=== PATIENT | male | born 1990 | race Caucasian/White ===

== ENCOUNTER 2016-08-23 12:07 | Inpatient (IN) | payer OTHER ==
[~2016-08-23] VITALS: Ht 180.3 cm; Wt 62.9 kg
[2016-08-23 12:27] LABS: POINT-OF-CARE METER ID UU14100415
[2016-08-23 12:51] LABS: EOSINOPHIL (%) 0 % (0-5); HEMATOCRIT 42.1 % (38.0-50.0); IMMATURE GRANULOCYTE (%) 0.8 % (0.0-0.7); IMMATURE GRANULOCYTE COUNT 0.1 K/uL; INSTRUMENT ABS NEUTROPHIL CT 10.2 K/uL; LYMPHOCYTE COUNT 1.3 K/uL (1.0-2.8); MCH 30.6 PG (29.0-34.0); MCHC 34.9 G/DL (30.0-36.0); MCV 87.7 FL (86-99); MEAN PLAT.VOLUME 10.5 uM^3 (9.0-12.4); MONOCYTE (%) 10.5 % (3-12); MONOCYTE COUNT 1.4 K/uL (0-0.8); NEUTROPHIL (%) 78.6 % (45-76); NEUTROPHIL COUNT 10.2 K/uL (1.8-6.4); PLATELET COUNT 204 K/uL (156-360); RBC DIS.WIDTH-CV 11.4 % (11.8-14.6); RBC DIS.WIDTH-SD 37.1 % (39-53)
[2016-08-23 12:58] LABS: CARBON DIOXIDE (BICARBONATE) 20.4 MEQ/L (20-31)
[2016-08-23 13:03] LABS: CHLORIDE 101 mEq/L (99-109); POTASSIUM 4.6 mEq/L (3.7-5.4); SODIUM 134 mEq/L (136-147)
[2016-08-23 13:06] LABS: GLUCOSE 273 mg/dL (70-99)
[2016-08-23 13:07] LABS: ANION GAP 15 MEQ/L (2-14)
[2016-08-23 13:08] LABS: TOTAL BILIRUBIN 0.7 mg/dL (0.0-1.0)
[2016-08-23 13:09] LABS: ALKALINE PHOSPHATASE 74 IU/L (3-129); GFR ESTIMATE (CALCULATED) > 59 mL/min/
[2016-08-23 13:10] LABS: UREA NITROGEN (BUN) 18 mg/dL (9-23)
[2016-08-23 13:38] LABS: ADD MIUA? YES; BILIRUBIN NEGATIVE; BLOOD NEGATIVE; COLOR YELLOW ((YELLOW)); GLUCOSE (STRIP) >=500; KETONES 80; LEUKOCYTES NEGATIVE; NITRITE NEGATIVE; PROTEIN (STRIP) 100; UROBILINOGEN 0.2 MG/DL (0.2-1.0)
[2016-08-23 13:44] LABS: BACTERIA NONE SEEN /HPF; EPITHELIAL CELLS NONE SEEN /HPF; HYALINE CASTS 0-5 /LPF; MUCUS NONE SEEN /LPF; RED BLOOD CELLS 0-5 /HPF (0-5); UCUL ADDED? NO; WHITE BLOOD CELLS 0-5 /HPF (0-5)
[2016-08-23 14:02] LABS: LIPASE 7 U/L (1.0-51.0)
[2016-08-23 15:43] LABS: CHLORIDE 106 mEq/L (99-109); POTASSIUM 4.1 mEq/L (3.7-5.4); SODIUM 134 mEq/L (136-147)
[2016-08-23 15:45] LABS: GLUCOSE 230 mg/dL (70-99)
[2016-08-23 15:46] LABS: ANION GAP 15 MEQ/L (2-14)
[2016-08-23 15:48] LABS: GFR ESTIMATE (CALCULATED) > 59 mL/min/
[2016-08-23 15:49] LABS: UREA NITROGEN (BUN) 16 mg/dL (9-23)
[2016-08-23] MEDS ORDERED: HUMALOG100 UNIT/2 SC (16:44)
[2016-08-23] MEDS ORDERED: LEVEMIR100 UNIT/2 SC (16:44)
[2016-08-23] MEDS ORDERED: TRAMADOL HCL50 MG PO (16:45)
[2016-08-23 18:19] VITALS: BP 143/94
[2016-08-23 18:52] VITALS: BP 132/82
[2016-08-23 20:25] LABS: ANION GAP 15 MEQ/L (2-14); CHLORIDE 103 MEQ/L (99-109); POTASSIUM 3.8 MEQ/L (3.7-5.4); SAMPLE HEMOLYSIS CHECK 0; SAMPLE ICTERIC CHECK 0; SAMPLE LIPEMIA CHECK 0; SODIUM 135 MEQ/L (136-147)
[2016-08-23 20:31] LABS: GFR ESTIMATE (CALCULATED) > 59 mL/min/; GLUCOSE 193 mg/dL (70-99); UREA NITROGEN (BUN) 14 mg/dL (9-23)
[2016-08-23 22:06] LABS: POINT-OF-CARE METER ID UU13113717
[2016-08-24 01:24] LABS: POINT-OF-CARE METER ID UU13113717
[2016-08-24 02:12] VITALS: BP 129/69
[2016-08-24 05:18] LABS: POINT-OF-CARE METER ID UU13113717
[2016-08-24 05:58] LABS: MCH 31.6 PG (29.0-34.0); MCHC 35.5 G/DL (30.0-36.0); MCV 88.9 FL (86-99); MEAN PLAT.VOLUME 10.9 uM^3 (9.0-12.4); PLATELET COUNT 184 K/uL (156-360); RBC DIS.WIDTH-CV 11.6 % (11.8-14.6); RBC DIS.WIDTH-SD 37.1 % (39-53); WHITE BLOOD COUNT 15.3 K/uL (4.1-10.2)
[2016-08-24 06:22] LABS: ANION GAP 21 MEQ/L (2-14); CHLORIDE 99 MEQ/L (99-109); GFR ESTIMATE (CALCULATED) > 59 mL/min/; GLUCOSE 240 mg/dL (70-99); POTASSIUM 3.8 MEQ/L (3.7-5.4); SAMPLE HEMOLYSIS CHECK 0; SAMPLE ICTERIC CHECK 0; SAMPLE LIPEMIA CHECK 0; SODIUM 136 MEQ/L (136-147); UREA NITROGEN (BUN) 12 mg/dL (9-23)
[2016-08-24 07:18] VITALS: BP 121/74
[2016-08-24 07:45] LABS: POINT-OF-CARE METER ID UU13113717
[2016-08-24 10:50] LABS: ANION GAP 20 MEQ/L (2-14); CHLORIDE 98 MEQ/L (99-109); GFR ESTIMATE (CALCULATED) > 59 mL/min/; GLUCOSE 247 mg/dL (70-99); MAGNESIUM 2.1 mg/dl (1.3-2.7); POTASSIUM 3.6 MEQ/L (3.7-5.4); SAMPLE HEMOLYSIS CHECK 0; SAMPLE ICTERIC CHECK 0; SAMPLE LIPEMIA CHECK 0; SODIUM 133 MEQ/L (136-147); UREA NITROGEN (BUN) 12 mg/dL (9-23)
[2016-08-24 13:50] LABS: ANION GAP 16 MEQ/L (2-14); CHLORIDE 101 MEQ/L (99-109); GFR ESTIMATE (CALCULATED) > 59 mL/min/; GLUCOSE 186 mg/dL (70-99); POTASSIUM 3.6 MEQ/L (3.7-5.4); SAMPLE HEMOLYSIS CHECK 0; SAMPLE ICTERIC CHECK 0; SAMPLE LIPEMIA CHECK 0; SODIUM 133 MEQ/L (136-147); UREA NITROGEN (BUN) 11 mg/dL (9-23)
[2016-08-24 15:10] VITALS: BP 142/72
[2016-08-24 15:11] LABS: ANION GAP 12 MEQ/L (2-14); CHLORIDE 102 MEQ/L (99-109); GFR ESTIMATE (CALCULATED) > 59 mL/min/; GLUCOSE 178 mg/dL (70-99); POTASSIUM 3.8 MEQ/L (3.7-5.4); SAMPLE HEMOLYSIS CHECK 0; SAMPLE ICTERIC CHECK 0; SAMPLE LIPEMIA CHECK 0; SODIUM 133 MEQ/L (136-147); UREA NITROGEN (BUN) 10 mg/dL (9-23)
[2016-08-24 16:13] LABS: Estimated Average Glucose 235 mg/dL (70-123)
[2016-08-24 17:18] LABS: ANION GAP 12 MEQ/L (2-14); CHLORIDE 102 MEQ/L (99-109); GFR ESTIMATE (CALCULATED) > 59 mL/min/; GLUCOSE 152 mg/dL (70-99); POTASSIUM 3.7 MEQ/L (3.7-5.4); SAMPLE HEMOLYSIS CHECK 0; SAMPLE ICTERIC CHECK 0; SAMPLE LIPEMIA CHECK 0; SODIUM 133 MEQ/L (136-147); UREA NITROGEN (BUN) 10 mg/dL (9-23)
[2016-08-24 20:18] LABS: AMPHETAMINES QUANT VALUE 0 NG/ML; BARBITUATES QUANT VALUE 0 NG/ML; BENZODIAZEPINES QUANT VALUE 0 NG/ML; BENZODIAZEPINES, URINE SCREEN Negative (200 ng/mL); OPIATES QUANTITATIVE VALUE 0 NG/ML; PHENCYCLIDINE QUANT VALUE 0 NG/ML
[2016-08-24 20:30] VITALS: BP 132/80
[2016-08-24 21:17] LABS: ANION GAP 13 MEQ/L (2-14); CHLORIDE 102 MEQ/L (99-109); GFR ESTIMATE (CALCULATED) > 59 mL/min/; GLUCOSE 134 mg/dL (70-99); POTASSIUM 3.7 MEQ/L (3.7-5.4); SAMPLE HEMOLYSIS CHECK 0; SAMPLE ICTERIC CHECK 0; SAMPLE LIPEMIA CHECK 0; SODIUM 134 MEQ/L (136-147); UREA NITROGEN (BUN) 9 mg/dL (9-23)
[2016-08-25 00:40] VITALS: BP 122/67
[2016-08-25 07:18] VITALS: BP 126/84
[2016-08-25 08:27] LABS: EOSINOPHIL COUNT 0.1 K/uL (0-0.3); HEMATOCRIT 36.1 % (38.0-50.0); IMMATURE GRANULOCYTE (%) 0.6 % (0.0-0.7); IMMATURE GRANULOCYTE COUNT 0.1 K/uL; INSTRUMENT ABS NEUTROPHIL CT 4.9 K/uL; LYMPHOCYTE COUNT 1.7 K/uL (1.0-2.8); MCH 31.8 PG (29.0-34.0); MCHC 36.6 G/DL (30.0-36.0); MEAN PLAT.VOLUME 10.8 uM^3 (9.0-12.4); MONOCYTE (%) 12.7 % (3-12); NEUTROPHIL (%) 63.2 % (45-76); NEUTROPHIL COUNT 4.9 K/uL (1.8-6.4); PLATELET COUNT 160 K/uL (156-360); RBC DIS.WIDTH-CV 11.4 % (11.8-14.6); RBC DIS.WIDTH-SD 36.4 % (39-53); RED BLOOD COUNT 4.15 M/uL (4.00-5.50); WHITE BLOOD COUNT 7.8 K/uL (4.1-10.2)
[2016-08-25 09:00] LABS: ANION GAP 8 MEQ/L (2-14); CHLORIDE 99 MEQ/L (99-109); GFR ESTIMATE (CALCULATED) > 59 mL/min/; GLUCOSE 144 mg/dL (70-99); POTASSIUM 3.3 MEQ/L (3.7-5.4); SAMPLE HEMOLYSIS CHECK 0; SAMPLE ICTERIC CHECK 0; SAMPLE LIPEMIA CHECK 0; SODIUM 135 MEQ/L (136-147); UREA NITROGEN (BUN) 8 mg/dL (9-23)
[2016-08-25 09:04] LABS: HEMOGLOBIN A1c (GLYCOHEMOGLOB) 9.8 % HGB (Below 5.7)
[2016-08-25 10:04] LABS: POINT-OF-CARE METER ID UU13113717
[2016-08-25 14:00] LABS: POINT-OF-CARE METER ID UU13113717
[2016-08-25 15:04] VITALS: BP 120/66
[2016-08-25 18:01] LABS: POINT-OF-CARE METER ID UU14174225
[2016-08-25 23:26] VITALS: BP 144/76
[2016-08-26 02:40] LABS: POINT-OF-CARE METER ID UU14174225
[2016-08-26 06:07] LABS: POINT-OF-CARE METER ID UU14174225
[2016-08-26 07:18] LABS: ANION GAP 16 MEQ/L (2-14); CHLORIDE 100 MEQ/L (99-109); GFR ESTIMATE (CALCULATED) > 59 mL/min/; GLUCOSE 216 mg/dL (70-99); SAMPLE HEMOLYSIS CHECK 0; SAMPLE ICTERIC CHECK 0; SAMPLE LIPEMIA CHECK 0; SODIUM 136 MEQ/L (136-147); UREA NITROGEN (BUN) 10 mg/dL (9-23)
[2016-08-26 07:19] LABS: POTASSIUM 4.1 MEQ/L (3.7-5.4)
[2016-08-26 08:42] VITALS: BP 132/88
[2016-08-26 10:57] LABS: POINT-OF-CARE METER ID UU14174225; POINT-OF-CARE USER ID STWAMT
[2016-08-26] MEDS ORDERED: ZOFRAN4 MG PO (12:36)
[2016-08-26] MEDS ORDERED: LIDOCAINE700 MG TD (12:36)
[2016-08-26] MEDS ORDERED: PEPCID20 MG PO (12:38)
[2016-08-26 12:51] LABS: POINT-OF-CARE METER ID UU13113717
[2016-08-26 13:01] LABS: TROP-I INTERPRETATION NEGATIVE; TROPONIN-I < 0.01 ng/mL (0.0-0.30)
== END 2016-08-26 14:17 | disposition home or self-care (01) | DRG 639 ==
LOC: EME 12:07 → 5SOUTH 16:33 → EDOF 16:33 → 5SOUTH 18:00
PROVIDERS: Emergency Medicine; Internal Medicine; Nurse Practitioner Adult Health
DX: E10.10 Type 1 diabetes mellitus with ketoacidosis without coma (principal); E87.6 Hypokalemia; F12.90 Cannabis use, unspecified, uncomplicated; F17.200 Nicotine dependence, unspecified, uncomplicated; Z79.4 Long term (current) use of insulin; K29.70 Gastritis, unspecified, without bleeding; K27.9 Peptic ulcer, site unspecified, unspecified as acute or chronic, without hemorrhage or perforation; Z83.3 Family history of diabetes mellitus
CPT/HCPCS: 74177; 80048; 80048 91; 80053; 80306 90; 81003; 82010; 82803; 82948; 83036; 83630; 83690; 83735; 84100; 84484; 85025; 85027; 87177; 87493; 87506; 93005; 99281; 99285; J1650; J1815; J2405; J2765; J7030; S0028